=== PATIENT | female | born 1970 | race Caucasian/White ===

== ENCOUNTER 2018-01-07 17:22 | Emergency (ER) | payer OTHER ==
[2018-01-07] MEDS: SOD CHLORIDE 0.9% 1,000 ML IV (18:35)
[2018-01-07] MEDS: CEFEPIME 2GM/50 ML (PMX) 50 ML IVPB (18:35)
[2018-01-07] MEDS: HYDROmorphONE 1 MG/ML SYG IV (18:35)
[2018-01-07] MEDS: ONDANSETRON 4 MG INJ IV (18:35)
[2018-01-07 18:36] LABS: ABNORMAL IP MESSAGE 1; HEMATOCRIT 30.7 % (37.0-47.0); HEMOGLOBIN 10.4 g/dl (12.0-16.0); MEAN CORPUSCULAR HEMOGLOBIN 29.6 pg (29.0-33.0); MEAN CORPUSCULAR HGB CONC 33.9 g/dl (32.0-37.0); MEAN CORPUSCULAR VOLUME 87.5 fl (82.0-101.0); MEAN PLATELET VOLUME 9.9 fl (7.4-10.4); PLATELET COUNT 296 10^3/UL (140-415); RED BLOOD COUNT 3.51 10^6/ul (4.20-5.40); RED CELL DISTRIBUTION WIDTH 12.5 % (11.5-14.5)
[2018-01-07 18:44] LABS: ADD MAN DIFF? YES; POSITIVE DIFF @See below
[2018-01-07] MEDS: SODIUM CHLORIDE 0.9% 1L BAG IV* (18:44)
[2018-01-07 18:53] LABS: LACTIC ACID 1.6 mmol/L (0.5-2.0)
[2018-01-07 18:57] LABS: ALANINE AMINOTRANSFERASE 33 IU/L (13-69); ALBUMIN 3.4 g/dl (3.3-4.9); ALKALINE PHOSPHATASE 99 IU/L (42-121); ANION GAP 15 (8-16); ASPARTATE AMINO TRANSFERASE 17 IU/L (15-46); BILIRUBIN,INDIRECT 0.7 mg/dl (0-1.1); BILIRUBIN,TOTAL 0.7 mg/dl (0.2-1.3); BLOOD UREA NITROGEN 11 mg/dl (7-20); CALCIUM 9.4 mg/dl (8.4-10.2); CARBON DIOXIDE 24 mmol/L (21-31); CHLORIDE 99 mmol/L (97-110); CREATININE 0.88 mg/dl (0.44-1.00); GLUCOSE 156 mg/dl (70-220); POTASSIUM 3.2 mmol/L (3.5-5.1); SODIUM 135 mmol/L (135-144); TOTAL PROTEIN 6.8 g/dl (6.1-8.1)
[2018-01-07] MEDS: VANCOMYCIN 1 GM (PMX) 250 ML IVPB (19:10)
[2018-01-07 19:37] LABS: BAND NEUTROPHILS #M 2.9 10^3/ul (0.0-0.6); BAND NEUTROPHILS % (M) 42 % (0-4); LYMPHOCYTES # 0.7 10^3/ul (0.8-2.9); LYMPHOCYTES #M 0.7 10^3/ul (0.8-2.9); LYMPHOCYTES % (M) 10 % (15-51); MONOCYTE # 0.6 10^3/ul (0.3-0.9); MONOCYTE #M 0.5 10^3/ul (0.3-0.9); MONOCYTES % (M) 8 % (0-11); SEGMENTED NEUTROPHILS (M) % 40 % (39-77)
[2018-01-07] MEDS: ACETAMINOPHEN 500 MG TAB PO (19:44)
[2018-01-07 21:50] LABS: LACTIC ACID 0.9 mmol/L (0.5-2.0)
[2018-01-07] MEDS: SOD CHLORIDE 0.9% 100 ML (22:02)
[2018-01-07] MEDS: IOHEXOL 300MG/ML 150 ML BTL (22:03)
== END 2018-01-07 23:20 | disposition home or self-care (01) ==
LOC: E/R 17:22
DX: L76.82 Other postprocedural complications of skin and subcutaneous tissue (principal); I96 Gangrene, not elsewhere classified; L03.311 Cellulitis of abdominal wall; J45.909 Unspecified asthma, uncomplicated; Y82.8 Other medical devices associated with adverse incidents
CPT/HCPCS: 36415; 74177; 80053; 83605; 84703; 85025; 87040; 96374; 96375; 99285-25